=== PATIENT | male | born 1975 | race Two or more races ===

== ENCOUNTER 2022-05-02 14:27 | Emergency (ER) | payer OTHER ==
[2022-05-02] MEDS ORDERED: TETANUS-DIPTH-ACEL PERTUSSIS 0.5ML SYR Tdap IM ONE (16:00)
[2022-05-02] MEDS ORDERED: CEPH-510 PO (16:04)
[2022-05-02] MEDS ORDERED: IBUP800T26 PO (16:04)
[2022-05-02] MEDS ORDERED: LIDOCAINE 1% HCL (LOCAL ANESTH.) INJ 20ML MDV ID ONE (17:45)
[2022-05-02 19:26] VITALS: BP 147/79
== END 2022-05-02 19:26 | disposition home or self-care (01) ==
LOC: ER 14:27
DX: S61.012A Laceration without foreign body of left thumb without damage to nail, initial encounter (principal); W27.8XXA Contact with other nonpowered hand tool, initial encounter; Y93.89 Activity, other specified; Y92.89 Other specified places as the place of occurrence of the external cause; Y99.8 Other external cause status
CPT/HCPCS: 12002; 90471; 90715; 99283; J2001